=== PATIENT | female | born 1955 | race Caucasian/White ===

== ENCOUNTER 2017-02-25 18:40 | Emergency (ER) | payer SELFPAY ==
--- NOTE | 2017-02-25 21:05 | UC ---
Knee Pain HPI - HPI Summary HPI Summary: ONSET OF RIGHT KNEE PAIN AND SWELLING ABOUT 4 DAYS AGO. NOTICED IT IN THE MORNING WHEN SHE WENT TO PICK SOMETHING UP OFF THE FLOOR. DENIES ANY TRAUMA OR FALLS. - History of Current Complaint Chief Complaint: UCLowerExtremity Stated Complaint: RIGHT KNEE PAIN Time Seen by Provider: 02/25/17 20:56 Hx Obtained From: Patient Onset/Duration: Sudden Onset, Lasting Days, Still Present Severity Initially: Moderate Severity Currently: Moderate Location Of Injury: RIGHT KNEE Pain Intensity: 3 Pain Scale Used: 0-10 Numeric Character: Aching Aggravating Factor(s): Movement, Weight Bearing Alleviating Factor(s): Rest Associated Signs And Symptoms: Positive: Swelling, Redness Able to Bear Weight: Yes - Allergies/Home Medications Allergies/Adverse Reactions: Allergies Allergy/AdvReac Type Severity Reaction Status Date / Time Penicillins Allergy Unknown Verified 02/25/17 18:57 Reaction Details PMH/Surg Hx/FS Hx/Imm Hx Previously Healthy: Yes - Surgical History Surgical History: Yes Surgery Procedure, Year, and Place: C-SECT X 2. APPY. LEFT WRIST FX REPAIR - Family History Known Family History: Negative: Hypertension, Diabetes - Social History Alcohol Use: None Substance Use Type: None Smoking Status (MU): Current Every Day Smoker Type: Cigarettes Amount Used/How Often: 1 PPD Length of Time of Smoking/Using Tobacco: 45 YRS Review of Systems Constitutional: Negative Skin: Negative Respiratory: Negative Cardiovascular: Negative Gastrointestinal: Negative Musculoskeletal: Arthralgia, Decreased ROM, Edema All Other Systems Reviewed And Are Negative: Yes Physical Exam Triage Information Reviewed: Yes Appearance: Well-Appearing, No Pain Distress, Well-Nourished Vital Signs: Initial Vital Signs Temp 99.5 F 02/25/17 18:48 Pulse 92 02/25/17 18:48 Resp 20 02/25/17 18:48 BP 169/77 02/25/17 18:48 Pulse Ox 100 02/25/17 18:48 Vital Signs Reviewed: Yes Eyes: Positive: Conjunctiva Clear ENT: Positive: Hearing grossly normal Neck: Positive: Supple Respiratory: Positive: No respiratory distress, No accessory muscle use Cardiovascular: Positive: Pulses Normal Abdomen Description: Positive: Soft Musculoskeletal: Positive: ROM Limited @ - RIGHT KNEE, Edema @ - RIGHT KNEE, Other: - RIGHT KNEE : MEDIAL AND LATERAL JOINT LINE TENDERNESS. MCL AND LCL INTACT TO STRESS TESTING. NEG LACHMANS. NEG DRAWERS SIGNS. NEG MCMURRAYS. NEG PATELLAR APPREHENSION TEST. NO TENDERNESS OVER PATELLAR LIGAMENT. TTP OVER QUADRICEPS TENDON. DECREASED ROM (FLEXION). Neurological: Positive: Alert Psychological: Positive: Age Appropriate Behavior Skin: Negative: rashes Diagnostics - Radiology RIGHT KNEE XRAY Xray Interpretation: No Acute Changes - No traumatic injury or significant arthropathic change evident. Bone density appears decreased Radiology Interpretation Completed By: Radiologist Knee Pain Course/Dx - Differential Dx/Diagnosis Provider Diagnoses: RIGHT KNEE SPRAIN Discharge - Discharge Plan Condition: Stable Disposition: HOME Prescriptions: Ibuprofen TAB* [Motrin TAB* 600 MG] 1 tab PO Q6H PRN #30 tab PRN Reason: Pain Patient Education Materials: Knee Sprain (ED) Forms: *Work Release Referrals: Dandre Zeng MD [Medical Doctor] - If Needed Additional Instructions: XRAY WITHOUT ACUTE INJURY. KNEE IMMOBILIZER FOR COMFORT AND MOBILITY. BE SURE TO GO THROUGH SLOW RANGE OF MOTION AND STRETCHING EXERCISES IN SEVERAL DAYS YOU ARE ABLE TO PREVENT STIFFENING UP. IF YOUR SYMPTOMS ARE NOT IMPROVING OVER THE NEXT FEW DAYS CALL YOUR ORTHOPEDIST FOR A FOLLOW-UP APPT TO DISCUSS FURTHER TREATMENT OPTIONS.
[2017-02-25 21:08] VITALS: BP 155/63
--- NOTE | 2017-02-25 22:01 | RAD ---
Indication: 4 days RIGHT knee pain. Comparison: None. Technique: RIGHT knee: AP, tunnel, lateral, sunrise views. Report: Bone density appears decreased. Negative for joint effusion, fracture, or significant arthropathic change. Unremarkable soft tissue contours. IMPRESSION: No traumatic injury or significant arthropathic change evident. Bone density appears decreased. Consider DEXA scan follow-up.
== END 2017-02-25 22:20 | disposition home or self-care (01) ==
LOC: UCCORT 18:40
DX: S83.91XA Sprain of unspecified site of right knee, initial encounter (principal); X58.XXXA Exposure to other specified factors, initial encounter; Z88.0 Allergy status to penicillin; F17.210 Nicotine dependence, cigarettes, uncomplicated
CPT/HCPCS: 99203; G0463

== ENCOUNTER 2017-03-24 13:00 | Emergency (ER) | payer SELFPAY ==
--- NOTE | 2017-03-24 13:01 | UC ---
Abdominal Pain Female HPI - HPI Summary HPI Summary: 61 YEAR OLD FEMALE PRESENTS WITH LLQ ABDOMINAL PAIN X 1 MONTH. - History of Current Complaint Stated Complaint: STOMACH COMPLAINT Time Seen by Provider: 03/24/17 13:00 Hx Obtained From: Patient Onset/Duration: Lasting Weeks Timing: Constant Severity Initially: Moderate Severity Currently: Moderate Pain Scale Used: 0-10 Numeric - 5 Allergies/Adverse Reactions: Allergies Allergy/AdvReac Type Severity Reaction Status Date / Time Penicillins Allergy Unknown Verified 03/24/17 13:12 Reaction Details Home Medications: Home Medications Sucralfate TAB* [Carafate*] 1 gm PO QID 03/24/17 [History Confirmed 03/24/17] PMH/Surg Hx/FS Hx/Imm Hx Previously Healthy: Yes - Surgical History Surgical History: Yes Surgery Procedure, Year, and Place: C-SECT X 2. APPY. LEFT WRIST FX REPAIR - Family History Known Family History: Negative: Hypertension, Diabetes - Social History Alcohol Use: None Substance Use Type: None Smoking Status (MU): Current Every Day Smoker Type: Cigarettes Amount Used/How Often: 1 PPD Length of Time of Smoking/Using Tobacco: 45 YRS Review of Systems Constitutional: Negative Skin: Negative Eyes: Negative ENT: Negative Respiratory: Negative Cardiovascular: Negative Gastrointestinal: Abdominal Pain - LLQ Genitourinary: Negative Motor: Negative Neurovascular: Negative Musculoskeletal: Negative Neurological: Negative Psychological: Negative All Other Systems Reviewed And Are Negative: Yes Physical Exam Triage Information Reviewed: Yes Vital Signs Reviewed: Yes Eye Exam: Normal ENT Exam: Normal Dental Exam: Normal Neck exam: Normal Neck: Positive: 1 Respiratory Exam: Normal Cardiovascular Exam: Normal Abdomen Description: Positive: Other: - LLQ PAIN Musculoskeletal Exam: Normal Neurological Exam: Normal Psychological Exam: Normal Skin Exam: Normal Abd Pain Female Course/Dx - Differential Dx/Diagnosis Provider Diagnoses: LLQ PAIN Discharge - Discharge Plan Condition: Stable Disposition: HOME Prescriptions: Metronidazole [Flagyl 500 MG TAB] 500 mg PO TID #21 tab Sucralfate [Carafate] 1 gm PO QID ACHS #120 tab Patient Education Materials: Abdominal Pain (ED), Enteritis (ED) Referrals: No Primary Care Phys,NOPCP [Primary Care Provider] - Mark Baker MD [Medical Doctor] -
[2017-03-24 13:12] VITALS: BP 154/59
[2017-03-24] MEDS ORDERED: Iohexol 300* (CONTRAST) 10 ML SDV IV ONE (13:48)
--- NOTE | 2017-03-24 14:51 | RAD ---
INDICATION: Left lower quadrant abdominal pain. COMPARISON: There are no prior studies available for comparison. TECHNIQUE: A CT scan of the abdomen and pelvis was performed without and with intravenous and without oral contrast following intravenous injection of 91 ml of Omnipaque 300 nonionic contrast. Contiguous axial sections were obtained from the lung bases through the symphysis pubis. Images were reconstructed in the coronal and sagittal planes. FINDINGS: The lung bases are clear. No pleural effusion is present. The liver and spleen are normal in size. There is a small hypervascular lesion present in the lateral aspect of the right hepatic lobe measuring 2.1 x 1.6 cm in size. This is a nonspecific finding and may represent a hemangioma. Recommend an outpatient right upper quadrant ultrasound for further evaluation. No calcified gallstones are seen. The pancreas appears to be within normal limits. The kidneys and adrenal glands are normal in size. No hydronephrosis is seen. There is a 1.2 cm cyst arising from the upper pole of the left kidney. The abdominal aorta is normal in caliber. There is mild to moderate plaque present. No significant enlarged retroperitoneal lymph nodes are seen. The stomach, small and large bowel appear nondistended. The patient is status post appendectomy by history. There is circumferential thickening of the wall of a long segment of the terminal ileum. The descending colon wall is not thickened. There is mild stranding in the fat adjacent to the terminal ileum and engorgement of the mesenteric vessels. There are also mildly enlarged adjacent mesenteric lymph nodes measuring up to 1 cm in size. There is a small amount of adjacent free intraperitoneal fluid. No free intraperitoneal air is seen. No significant focal osseous abnormality is seen. IMPRESSION: 1. THICKENING OF THE WALL OF THE DISTAL ILEUM WITH ADJACENT INTERSTITIAL STRANDING, MESENTERIC ENGORGEMENT AND MILD MESENTERIC LYMPHADENOPATHY. THESE FINDINGS ARE NONSPECIFIC ALTHOUGH SUGGESTIVE OF INFECTIOUS ENTERITIS, INFLAMMATORY BOWEL DISEASE OR LESS LIKELY ISCHEMIC BOWEL. 2. SMALL HYPERVASCULAR LESION WITHIN THE LIVER. RECOMMEND A FOLLOW-UP OUTPATIENT HEPATIC ULTRASOUND FOR FURTHER EVALUATION.
== END 2017-03-24 15:15 | disposition home or self-care (01) ==
LOC: UCCORT 13:00
DX: R10.32 Left lower quadrant pain (principal); Z88.0 Allergy status to penicillin; F17.210 Nicotine dependence, cigarettes, uncomplicated
CPT/HCPCS: 74178; 99212; G0463; Q9967

== ENCOUNTER 2017-05-12 09:56 | Emergency (ER) | payer MEDICAID, OTHER ==
[2017-05-12 10:25] VITALS: BP 111/57
--- NOTE | 2017-05-12 11:28 | UC ---
Abdominal Pain Female HPI - HPI Summary HPI Summary: 61 YO FEMALE WITH 2 MOS HX OF ADB PAIN AND WT LOSS SEEN HERE EARLY OCT CT SHOWED ? [facility] REFERAL SEEN BY GI MD LAST WK (DR. BOYLE) COLONOSCOPY PLANNED 3 DAY HX OF F/C N/V AT ONSET DIARRHEA X 3 THIS AM DIAPHORESIS NO BLOOD IN STOOL OR VOMITUS - History of Current Complaint Chief Complaint: UCGI Stated Complaint: STOMACH ACHE Time Seen by Provider: 05/12/17 10:48 Hx Obtained From: Patient Onset/Duration: Sudden Onset, Lasting Days - 3 Timing: Constant Severity Currently: None Pain Intensity: 0 - NO PAIN PRESENTLY Pain Scale Used: 0-10 Numeric Location: Other - NA Character: Not Applicable Aggravating Factor(s): Nothing Alleviating Factor(s): Nothing Associated Signs and Symptoms: Positive: Diaphoresis, Fever, Nausea, Vomiting, Diarrhea Allergies/Adverse Reactions: Allergies Allergy/AdvReac Type Severity Reaction Status Date / Time Penicillins Allergy Unknown Verified 05/12/17 10:19 Reaction Details Home Medications: Home Medications Budesonide CAP(NF) 9 mg PO QAM 05/12/17 [History Confirmed 05/12/17] Mesalamine (NF) [Apriso (NF)] 4 tab PO QAM 05/12/17 [History Confirmed 05/12/17] PMH/Surg Hx/FS Hx/Imm Hx Previously Healthy: Yes - Surgical History Surgical History: Yes Surgery Procedure, Year, and Place: Left Wrist Fracture, 2014, [place]; Appendectomy, ~2013, [place]; C-Sections, 1981 1984, [place] - Family History Known Family History: Positive: Hypertension Negative: Diabetes - Social History Alcohol Use: None Substance Use Type: None Smoking Status (MU): Heavy Every Day Tobacco Smoker Type: Cigarettes Amount Used/How Often: <1 PPD Length of Time of Smoking/Using Tobacco: Since Age 15 Household Exposure Type: Cigarettes - Immunization History Most Recent Influenza Vaccination: Not the 2017/2017 Season Review of Systems Constitutional: Fever, Chills Skin: Negative Eyes: Negative ENT: Negative Respiratory: Negative Cardiovascular: Negative Gastrointestinal: Abdominal Pain - AT TIME, Vomiting, Diarrhea, Nausea Genitourinary: Negative Motor: Negative Neurovascular: Negative Musculoskeletal: Negative Neurological: Negative Psychological: Negative Is Patient Immunocompromised?: No All Other Systems Reviewed And Are Negative: Yes Physical Exam Triage Information Reviewed: Yes Appearance: No Pain Distress, Ill-Appearing Vital Signs: Initial Vital Signs Temp 98.2 F 05/12/17 10:16 Pulse 82 05/12/17 10:16 Resp 16 05/12/17 10:16 BP 111/57 05/12/17 10:16 Pulse Ox 98 05/12/17 10:16 Vital Signs Reviewed: Yes Eyes: Positive: Conjunctiva Clear ENT: Positive: Hearing grossly normal. Negative: Nasal congestion, Nasal drainage, Trismus, Muffled voice, Hoarse voice, Dental tenderness Neck: Positive: Supple Respiratory: Positive: Lungs clear, Normal breath sounds, No respiratory distress Cardiovascular: Positive: RRR Abdomen Description: Positive: Nontender, No Organomegaly, Soft Bowel Sounds: Positive: Present Neurological: Positive: Alert Psychological Exam: Normal Skin Exam: Normal Abd Pain Female Course/Dx - Course Course Of Treatment: ADVISED TO GO TO ER. PT STATES SHE IS TOO BUSY. DISCUSSED POSSIBLE RISKS INCLUDING . D/W REED SANCHEZ AT [facility]. PT MAY GO THERE AT SOME POINT TODAY - Differential Dx/Diagnosis Provider Diagnoses: FEVER/CHILLS/VOMITING/DIARRHEA (IN THE FACE OF POSSIBLE CROHN'S DISEASE) Discharge - Discharge Plan Condition: Stable Disposition: AGAINST MEDICAL ADVICE Referrals: No Primary Care Phys,NOPCP [Primary Care Provider] - Additional Instructions: I THINK YOU SHOULD GO TO THE ER PLEASE GO THERE [facility] YOUR SYMPTOMS MAY BE DUE TO A COMPLICATION OF CROHN'S DISEASE YOU MAY DEVELOP SEPSIS(SEVERE INFECTION) /YOU COULD HAVE AN ABSCESS/ OF BOWEL/BOWEL PERFORATION)
== END 2017-05-12 11:15 | disposition left against medical advice (07) ==
LOC: UCCORT 09:56
DX: R50.9 Fever, unspecified (principal); R11.10 Vomiting, unspecified; R19.7 Diarrhea, unspecified; Z88.0 Allergy status to penicillin; F17.210 Nicotine dependence, cigarettes, uncomplicated
CPT/HCPCS: 99212; G0463

== ENCOUNTER 2018-04-10 13:04 | Emergency (ER) | payer OTHER ==
[2018-04-10 13:45] VITALS: BP 128/54
[2018-04-10] MEDS ORDERED: Albuterol/Ipratropium NEB.SOL* Albuterol 2.5 MG/Ipratropium 0.5 MG 3 ML INH ONE (14:14)
--- NOTE | 2018-04-10 14:22 | UC ---
Respiratory Complaint HPI - HPI Summary HPI Summary: Patient has been having increased cough and sob, she is a smker, she is also on humira for her chrohnes disease. no fever, cough is not productive - History of Current Complaint Chief Complaint: UCRespiratory Stated Complaint: COUGH,CONGESTION Time Seen by Provider: 04/10/18 13:49 Hx Obtained From: Patient ?: No Onset/Duration: Sudden Onset, Lasting Days - 5 Timing: Constant Severity Initially: Mild Severity Currently: Mild Pain Intensity: 0 Character: Cough: Nonproductive Aggravating Factors: Exertion, Deep Breaths Alleviating Factors: Nothing Associated Signs And Symptoms: Positive: Dyspnea, Wheezing, URI - Allergies/Home Medications Allergies/Adverse Reactions: Allergies Allergy/AdvReac Type Severity Reaction Status Date / Time Penicillins Allergy Unknown Verified 04/10/18 13:31 Reaction Details Home Medications: Home Medications Adalimumab [Humira] 40 mg SQ SEE INSTRUCTIONS 04/10/18 [History Confirmed ] Lisinopril/HCTZ 04/02.5(NF) [Zestoretic 04/02.5(NF)] 1 tab PO DAILY 04/10/18 [ History Confirmed 04/10/18] Mesalamine CAP(NF) [Pentasa(NF)] 1,000 mg PO QID 04/10/18 [History Confirmed ] predniSONE TAB* [Deltasone 10 MG TAB*] 30 mg PO DAILY 04/10/18 [History Confirmed 04/10/18] PMH/Surg Hx/FS Hx/Imm Hx Previously Healthy: Yes - Surgical History Surgical History: Yes Surgery Procedure, Year, and Place: Left Wrist Fracture, 2014, [place]; Appendectomy, ~2013, [place]; C-Sections, 1981 1984, [place] - Family History Known Family History: Positive: Hypertension Negative: Diabetes - Social History Alcohol Use: None Substance Use Type: None Smoking Status (MU): Heavy Every Day Tobacco Smoker Type: Cigarettes Amount Used/How Often: <1 PPD Length of Time of Smoking/Using Tobacco: Since Age 15 Household Exposure Type: Cigarettes - Immunization History Most Recent Influenza Vaccination: Not the 2016/2017 Season Review of Systems Constitutional: Negative Skin: Negative Eyes: Negative ENT: Negative Respiratory: Shortness Of Breath, Cough Cardiovascular: Negative Gastrointestinal: Negative Genitourinary: Negative Motor: Negative Neurovascular: Negative Musculoskeletal: Negative Neurological: Negative Psychological: Negative Is Patient Immunocompromised?: No All Other Systems Reviewed And Are Negative: Yes Physical Exam Triage Information Reviewed: Yes Appearance: No Pain Distress, Well-Nourished, Ill-Appearing Vital Signs: Initial Vital Signs Temp 98.5 F 04/10/18 13:30 Pulse 86 04/10/18 13:30 Resp 18 04/10/18 13:30 BP 128/54 04/10/18 13:30 Pulse Ox 97 04/10/18 13:30 Vital Signs Reviewed: Yes Eye Exam: Normal ENT: Positive: Pharyngeal erythema, TM bulging - left Dental Exam: Normal Neck exam: Normal Neck: Positive: Supple, Nontender, No Lymphadenopathy Respiratory: Positive: Chest non-tender, Respiratory distress - mild, Rhonchi, Wheezing, Expiration, Inspiration Cardiovascular Exam: Normal Cardiovascular: Positive: RRR, No Murmur, Pulses Normal Abdominal Exam: Normal Abdomen Description: Positive: Nontender, No Organomegaly, Soft Bowel Sounds: Positive: Present Musculoskeletal Exam: Normal Musculoskeletal: Positive: Strength Intact, ROM Intact, No Edema Neurological Exam: Normal Neurological: Positive: Alert, Muscle Tone Normal Psychological Exam: Normal Skin Exam: Normal UC Diagnostic Evaluation - Laboratory O2 Sat by Pulse Oximetry: 97 Respiratory Course/Dx - Course Course Of Treatment: hx obtained, exam performed ,meds reviewed, duo neb given, treated for bronchitis and COPD exacerbation - Differential Dx/Diagnosis Differential Diagnosis/HQI/PQRI: Asthma, Bronchitis, Exacerbation Of COPD, Influenza, Lower Resp Infection, Sinusitis Provider Diagnoses: tobacco abuse. bronchitis Discharge - Sign-Out/Discharge Documenting (check all that apply): Patient Departure All imaging exams completed and their final reports reviewed: No Studies - Discharge Plan Condition: Stable Disposition: HOME Prescriptions: Albuterol HFA INHALER* [Ventolin HFA Inhaler*] 2 puff INH Q4H PRN #1 mdi PRN Reason: Cough Azithromyxin EDYTA (NF) [Z-Edyta (Zithromax) 250 mg tabs #6] 2 tab PO .TODAY, THEN 1 DAILY #6 tab Patient Education Materials: Acute Bronchitis (ED) Referrals: Rosa Garza PA [Primary Care Provider] - Additional Instructions: 1. Use the medication as prescribed 2. Increase fluid intake and get plenty of rest. 3. Get advise from your Humira prescriber as to when you should do your next dose, due to being ill. 4. follow up if symptoms are not improving - Billing Disposition and Condition Condition: STABLE Disposition: Home
== END 2018-04-10 14:53 | disposition home or self-care (01) ==
LOC: UCCORT 13:04
DX: J40 Bronchitis, not specified as acute or chronic (principal); K50.90 Crohn's disease, unspecified, without complications; F17.210 Nicotine dependence, cigarettes, uncomplicated; Z88.0 Allergy status to penicillin; Z79.52 Long term (current) use of systemic steroids
CPT/HCPCS: 99212; A9270-GY; G0463

== ENCOUNTER 2018-06-26 09:43 | Emergency (ER) | payer OTHER ==
[2018-06-26 10:26] VITALS: BP 133/68
--- NOTE | 2018-06-26 11:03 | UC ---
UC General HPI - HPI Summary HPI Summary: PT C/O 3 DAY HX COUGH, CHEST CONGESTION AND WHEEZING. DENIED CP, COPD/ASTHMA. TAKES HUMIRA FOR CROHN'S DZ. STOPPED IT DUE TO ILLNESS. SOB ONLY WITH COUGHING. - History of Current Complaint Chief Complaint: UCRespiratory Stated Complaint: COUGH,CONGESTION Time Seen by Provider: 06/26/18 10:55 Hx Obtained From: Patient Onset/Duration: Gradual Onset Timing: Constant Pain Intensity: 0 Associated Signs & Symptoms: Negative: Chest Pain, Fever - Allergy/Home Medications Allergies/Adverse Reactions: Allergies Allergy/AdvReac Type Severity Reaction Status Date / Time Penicillins Allergy Unknown Verified 06/26/18 10:23 Reaction Details PMH/Surg Hx/FS Hx/Imm Hx - Additional Past Medical History Additional PMH: CROHN'S DISEASE - Surgical History Surgical History: Yes Surgery Procedure, Year, and Place: Left Wrist Fracture, 2014, [place]; Appendectomy, ~2013, [place]; C-Sections, 1981 1984, [place] - Family History Known Family History: Positive: Hypertension Negative: Diabetes - Social History Lives: With Family Alcohol Use: None Substance Use Type: None Smoking Status (MU): Heavy Every Day Tobacco Smoker Type: Cigarettes Amount Used/How Often: <1 PPD Length of Time of Smoking/Using Tobacco: Since Age 15 Household Exposure Type: Cigarettes - Immunization History Most Recent Influenza Vaccination: Not the Season Review of Systems All Other Systems Reviewed And Are Negative: Yes Constitutional: Positive: Negative Skin: Positive: Negative Eyes: Positive: Negative ENT: Positive: Negative Respiratory: Positive: Cough Cardiovascular: Positive: Negative Gastrointestinal: Positive: Negative Genitourinary: Positive: Negative Motor: Positive: Negative Neurovascular: Positive: Negative Musculoskeletal: Positive: Negative Neurological: Positive: Negative Psychological: Positive: Negative Physical Exam Triage Information Reviewed: Yes Appearance: Well-Appearing Vital Signs: Initial Vital Signs Temp 98.1 F 06/26/18 10:21 Pulse 76 06/26/18 10:21 Resp 21 06/26/18 10:21 BP 133/68 06/26/18 10:21 Pulse Ox 98 06/26/18 10:21 Vital Signs Reviewed: Yes Eyes: Positive: Conjunctiva Clear ENT: Positive: Pharynx normal, TMs normal. Negative: Nasal congestion, Nasal drainage Neck: Positive: Supple, Nontender, No Lymphadenopathy Respiratory: Positive: No respiratory distress, Decreased breath sounds, Other: - Bilateral rhonchi/wheezes. cough is congested. Cardiovascular: Positive: RRR, No Murmur Abdomen Description: Positive: Nontender, No Organomegaly, Soft Bowel Sounds: Positive: Present Musculoskeletal: Positive: ROM Intact Neurological: Positive: Alert Psychological: Positive: Age Appropriate Behavior Skin Exam: Normal Course/Dx - Course Course Of Treatment: pt declined cXR and nebulizer tx here. will tx for presumptive bacterial infection and bronchospasm. need for close f/u stressed at time of visit plus go to ER for worsening to which pt agrees. - Diagnoses Provider Diagnosis: Cough, Bronchospasm, acute Discharge - Sign-Out/Discharge Documenting (check all that apply): Patient Departure All imaging exams completed and their final reports reviewed: No Studies - Discharge Plan Condition: Stable Disposition: HOME Prescriptions: Albuterol HFA INHALER* [Ventolin HFA Inhaler*] 2 puff INH Q6H #1 mdi DOXYcycline CAP(*) [DOXYcycline 100MG CAP(*)] 100 mg PO BID 10 Days #20 cap predniSONE TAB* [Deltasone 20 MG TAB*] 40 mg PO DAILY 3 Days #6 tab Patient Education Materials: Bronchospasm (ED), Acute Cough (ED) Referrals: Rosa Garza PA [Primary Care Provider] - Additional Instructions: FOLLOW UP WITH PRIMARY CARE SCHEDULED FOR THIS WEEK. GO TO THE ER FOR ANY WORSENING. - Billing Disposition and Condition Condition: STABLE Disposition: Home
== END 2018-06-26 11:18 | disposition home or self-care (01) ==
LOC: UCCORT 09:43
DX: J98.01 Acute bronchospasm (principal); R05 Cough; Z88.0 Allergy status to penicillin; F17.210 Nicotine dependence, cigarettes, uncomplicated; K50.90 Crohn's disease, unspecified, without complications
CPT/HCPCS: 99212; G0463